=== PATIENT | male | born 1970 | race African-American/Black ===

== ENCOUNTER 2017-02-06 13:43 | Emergency (ER) | payer OTHER ==
[2017-02-06 13:51] VITALS: BP 149/82; PULSE 86; TEMP 98.1; BMI 25.1
--- NOTE | 2017-02-06 14:33 | PDOC ---
History of Present Illness - General Chief Complaint: Pain Stated Complaint: LT SHOULDER PAIN Time Seen by Provider: 02/06/17 14:27 History Source: Patient Exam Limitations: No Limitations - History of Present Illness Initial Comments: 02/07/17 19:50 My chief Complaint: Left shoulder paain X 2 days History of Present Illness: Pt. 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 Pt. denies that pain radiates from neck or down left arm. Pt. denies any precipitating events that might have caused pain in shoulder. Pt. is on pain management for chronic neck and back pain. Pt. asking for an MRI explained that this must be gotten as an outpt.Pt. denies smoking, cough, night sweats, wt. loss or shortness of breath. 02/07/17 19:58 02/07/17 20:17 Occurred: reports: yesterday Severity: reports: severe Upper Extremity Pain Location: left: shoulder Method of Injury: reports: unknown Modifying Factors: improves with: immobilization Extremity Pain Location - Extremity Pain Location Extremity Pain Locations: left: other (shoulder ) Past History - Past Medical History Allergies/Adverse Reactions: Allergies Allergy/AdvReac Type Severity Reaction Status Date / Time No Known Drug Allergies Allergy Verified 02/06/17 13:51 Home Medications: Ambulatory Orders Oxycodone HCl/Acetaminophen [Percocet 5-325 mg Tablet] 1 - 2 tab PO Q4H PRN #20 tablet MDD 12 08/30/15 Anemia: No Asthma: No Cancer: No Cardiac Disorders: No CVA: No COPD: No CHF: No Dementia: No Diabetes: No GI Disorders: No Disorders: No HTN: No Hypercholesterolemia: No Kidney Stones: No Liver Disease: No Seizures: No Thyroid Disease: No - Surgical History Abdominal Surgery: No Appendectomy: No Cardiac Surgery: No Cholecystectomy: No Lung Surgery: No Neurologic Surgery: No Orthopedic Surgery: Yes (C- DISC SX 2010 AND 12/13/11, saroj placement lumbar spine ) - Family Disease History Family Disease History: Heart Disease: Grandparents (paternal GF) - Reproductive History Testicular Surgery: No - Immunization History Td Vaccination: Yes TDAP Vaccination: Yes Immunization Up to Date: No - Suicide/Smoking/Psychosocial Hx Smoking Status: Yes Smoking History: Never smoked Have you smoked in the past 12 months: Yes Number of Cigarettes Smoked Daily: 10 'Breaking Loose' booklet given: 07/30/13 Hx Alcohol Use: No Drug/Substance Use Hx: No Substance Use Type: None Hx Substance Use Treatment: No Review of Systems - Review of Systems Able to Perform ROS?: Yes Constitutional: No: Symptoms Reported HEENTM: No: Symptoms Reported Respiratory: No: Symptoms reported Cardiac (ROS): No: Symptoms Reported ABD/GI: No: Symptoms Reported : No: Symptoms Reported Musculoskeletal: Yes: Joint Pain (left shoulder ), Other (decreased range of motion left shoulder ). No: Joint Swelling Integumentary: No: Symptoms Reported Neurological: Yes: Weakness (left arm slight with decreased range of motion left shoulder ) *Physical Exam - Vital Signs Last Vital Signs Temp Pulse Resp BP Pulse Ox 98.1 F 86 20 149/82 100 02/06/17 13:48 02/06/17 13:48 02/06/17 13:48 02/06/17 13:48 02/06/17 13:48 - Physical Exam General Appearance: Yes: Appropriately Dressed Neck: negative: Lymphadenopathy (R), Lymphadenopathy (L), Rigidity, Tender midline Respiratory/Chest: positive: Lungs Clear, Normal Breath Sounds. negative: Chest Tender, Respiratory Distress Cardiovascular: positive: Regular Rhythm, Regular Rate, S1, S2 Extremity: positive: Normal Capillary Refill, Tender (left shoulder ). negative : Normal Inspection (slightly lower than rt. ), Normal Range of Motion (left shoulder ) Integumentary: negative: Normal Color Neurologic: positive: Alert, Motor Strength 5/5 (motor strength left arm 2/3), Respond to painful stimul (left arm ). negative: Numbness, Sensory Deficit Procedures - Consent Consent obtained: From Patient - Splinting Pre-Proc Neuro Vasc Exam: normal Post-Proc Neuro Vasc Exam: normal Progress: 02/06/17 15:34 Waist shoulder immobilizer applied to left Medical Decision Making - Medical Decision Making 02/06/17 15:35 Pt. 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 Pt. denies that pain radiates from neck or down left arm. Pt. denies any precipitating events that might have caused pain in shoulder. Pt. is on pain management for chronic neck and back pain. Pt. asking for an MRI explained that this must be gotten as an outpt. Pt. denies smoking, cough, night sweats, wt. loss or shortness of breath. left upper lobe small granuloma left shoulder pain. PLAN: Left shoulder waist immobilizer Toradol 60 mg IM now X-ray left shoulder calcification noted, left upper lobe small granuloma noted per Dr. Downs this was not noted on last xray 2014 Follow-up with orthopedist as soon as possible for further evaluation 02/07/17 19:55 02/07/17 19:56 02/07/17 19:58 02/07/17 19:59 02/07/17 20:16 *DC/Admit/Observation/Transfer Diagnosis at time of Disposition: Calcified granuloma of lung Shoulder pain, left Qualifiers: Chronicity: acute Qualified Code(s): M25.512 - Pain in left shoulder - Discharge Dispostion Disposition: HOME Condition at time of disposition: Stable - Referrals Referrals: Antolin Nelson [Primary Care Provider] - - Patient Instructions Additional Instructions: Follow Up with your primary care provider in regards to your left lung granuloma noted on shoulder x-ray today for further evaluation Follow up with pain management as soon as possible Follow-up with your orthopedist as soon as possible for further evaluation of shoulder pain Return to the emergency room if symptoms worsen increased weakness numbness of left arm Patient voiced understanding of discharge instructions and all questions were answered - Post Discharge Activity
[2017-02-06] MEDS ORDERED: KETOROLAC TROMETHAMINE 60 MG/2 ML VIAL IM ONE (14:58)
[2017-02-06] MEDS ORDERED: KETOROLAC TROMETHAMINE 60 MG/2 ML VIAL ONE (15:03)
== END 2017-02-06 16:22 | disposition home or self-care (01) ==
LOC: JERFT 13:43
PROC: 2W3BXYZ Immobilization of Left Upper Arm using Other Device (ICD-10-PCS; principal; 2017-02-06)
DX: M25.512 Pain in left shoulder (principal); J84.10 Pulmonary fibrosis, unspecified
CPT/HCPCS: 73030-TC-LT; 99281-25

== ENCOUNTER 2017-07-19 11:53 | Emergency (ER) | payer OTHER ==
[2017-07-19 12:12] VITALS: BP 137/87; PULSE 87; TEMP 98.2; BMI 25.8
[2017-07-19] MEDS ORDERED: KETOROLAC TROMETHAMINE 60 MG/2 ML VIAL IM ONE (12:43)
[2017-07-19] MEDS ORDERED: PANTOPRAZOLE 40 MG TABLET (FP) PO ONE (12:44)
--- NOTE | 2017-07-19 12:48 | PDOC ---
History of Present Illness - General Chief Complaint: Back Pain Stated Complaint: BACK PAIN Time Seen by Provider: 07/19/17 12:19 - History of Present Illness Initial Comments: 46-year-old male presents for evaluation of lower back pain. He has a long history of lumbar issues. He's had a fusion in the past. He describes his pain is achy exacerbated with prolonged sitting and walking with left posterior lateral leg radiculopathy no loss of bowel or bladder function. The symptoms are recently exacerbated about 2 weeks ago after a long car ride. 07/19/17 12:45 Past History - Past Medical History Allergies/Adverse Reactions: Allergies Allergy/AdvReac Type Severity Reaction Status Date / Time No Known Drug Allergies Allergy Verified 07/19/17 12:12 Home Medications: Ambulatory Orders Oxycodone HCl/Acetaminophen [Percocet 5-325 mg Tablet] 1 - 2 tab PO Q4H PRN #20 tablet MDD 12 08/30/15 Medical Marijuana [Medical Marijuana Oil] 07/19/17 Anemia: No Asthma: No Cancer: No Cardiac Disorders: No CVA: No COPD: No CHF: No Dementia: No Diabetes: No GI Disorders: No Disorders: No HTN: No Hypercholesterolemia: No Kidney Stones: No Liver Disease: No Seizures: No Thyroid Disease: No Other medical history: degenerative disc disease - Surgical History Abdominal Surgery: No Appendectomy: No Cardiac Surgery: No Cholecystectomy: No Lung Surgery: No Neurologic Surgery: No Orthopedic Surgery: Yes (C- DISC SX 2010 AND 12/13/11, saroj placement lumbar spine ) - Family Disease History Family Disease History: Heart Disease: Grandparents (paternal GF) - Reproductive History Testicular Surgery: No - Immunization History Td Vaccination: Yes TDAP Vaccination: Yes Immunization Up to Date: No - Suicide/Smoking/Psychosocial Hx Smoking Status: Yes Smoking History: Never smoked Have you smoked in the past 12 months: Yes Number of Cigarettes Smoked Daily: 5 Information on smoking cessation initiated: No 'Breaking Loose' booklet given: 07/30/13 Hx Alcohol Use: No Drug/Substance Use Hx: No Substance Use Type: None Hx Substance Use Treatment: No Review of Systems - Review of Systems Musculoskeletal: Yes: Back Pain All Other Systems: Reviewed and Negative *Physical Exam - Vital Signs Last Vital Signs Temp Pulse Resp BP Pulse Ox 98.2 F 87 20 137/87 99 07/19/17 12:09 07/19/17 12:09 07/19/17 12:09 07/19/17 12:07/19/17 12:09 - Physical Exam Comments: Lumbar spine skin color and temperature are normal. There is a well-healed midline incision There is full nonpainful range of motion. 5 out of 5 strength in bilateral lower extremities. Patella and Achilles reflexes are 2+ and symmetric bilaterally. There is no clonus. Straight leg raise test is negative bilaterally. Thighs and calves are soft and nontender. There are no gross sensory motor deficits. Neurovascularly intact. 07/19/17 12:46 *DC/Admit/Observation/Transfer Diagnosis at time of Disposition: Back pain - Discharge Dispostion Disposition: HOME Condition at time of disposition: Improved Decision to Admit order: No - Referrals - Patient Instructions Additional Instructions: Return to the emergency room if symptoms worsen or go unresolved. Follow-up with her operating surgeon in the next day or 2 for further evaluation and treatment options - Post Discharge Activity
== END 2017-07-19 13:09 | disposition home or self-care (01) ==
LOC: JERFT 11:53
PROC: 3E0233Z Introduction of Anti-inflammatory into Muscle, Percutaneous Approach (ICD-10-PCS; principal; 2017-07-19)
DX: M54.5 Low back pain (principal)
CPT/HCPCS: 99281-25